=== PATIENT | female | born 1990 | race Hispanic/Latino ===

== ENCOUNTER 2019-12-26 20:42 | Emergency (ER) | payer OTHER ==
[~2019-12-26] VITALS: Ht 162.6 cm; Wt 79.4 kg
[2019-12-26] MEDS ORDERED: TAMIFLU75 MG PO (22:05)
[2019-12-26 22:24] VITALS: BP 119/79
== END 2019-12-26 22:32 | disposition home or self-care (01) ==
LOC: FSED 20:42
DX: R50.9 Fever, unspecified (principal); R05 Cough; J11.1 Influenza due to unidentified influenza virus with other respiratory manifestations
CPT/HCPCS: 83518; 87400; 99283